=== PATIENT | male | born 1975 | race Caucasian/White ===

== ENCOUNTER 2024-10-02 21:59 | Emergency (ER) | payer BC ==
[~2024-10-02] VITALS: Ht 172.7 cm; Wt 83.9 kg
[2024-10-02 22:12] VITALS: O2SAT 97
[2024-10-02] MEDS ORDERED: TDAP DIPH,PERTUSS,TET VAC/PF 0.5 ML DISP.SYRIN IM ONE (22:47)
[2024-10-02] MEDS ORDERED: CEphaleXIN 500 MG CAPSULE ONE (22:47)
[2024-10-02] MEDS: CEphaleXIN 500 MG CAPSULE PO ONE (22:51)
[2024-10-02] MEDS: TDAP DIPH,PERTUSS,TET VAC/PF 0.5 ML DISP.SYRIN IM ONE (22:53)
[2024-10-02] MEDS ORDERED: DOXY-326 PO (22:54)
[2024-10-02] MEDS ORDERED: CEPH500C2 PO (22:54)
== END 2024-10-02 23:40 | disposition home or self-care (01) ==
LOC: ER 22:03
DX: S61.412A Laceration without foreign body of left hand, initial encounter (principal); Z79.899 Other long term (current) drug therapy; W26.8XXA Contact with other sharp object(s), not elsewhere classified, initial encounter; Y93.89 Activity, other specified; Y92.89 Other specified places as the place of occurrence of the external cause; Y99.8 Other external cause status
CPT/HCPCS: 90715; A4606; A4663